=== PATIENT | female | born 1990 | race Caucasian/White ===

== ENCOUNTER 2018-04-15 21:54 | Emergency (ER) | payer BC ==
[2018-04-15] MEDS ORDERED: Famotidine 20 MG/2 ML SDV IVPUSH ONE (22:22)
[2018-04-15] MEDS ORDERED: Ondansetron 4 MG/2 ML SDV IVPUSH ONE (22:22)
[2018-04-15] MEDS ORDERED: Sodium Chloride 0.9% 10 ML Syringe FLUSH PRN (22:22)
[2018-04-15] MEDS ORDERED: metroNIDAZOLE/Normal Saline 500 MG in Premix Bag 1 BAG IV ONE (22:22)
[2018-04-15] MEDS ORDERED: cefTRIAXone 1 GM in Sodium Chloride 0.9% 100 ML IV ONE (22:22)
[2018-04-15] MEDS ORDERED: Lactated Ringers 1,000 ML IV ONE (22:22)
[2018-04-15] MEDS ORDERED: Pantoprazole 40 MG Vial IVPUSH ONE (22:22)
--- NOTE | 2018-04-15 22:37 | EDM.PDOC ---
ED HPI GENERAL MEDICAL PROBLEM - General Chief Complaint: VENEER TRIMMER Problem Stated Complaint: Vaginal pain Time Seen by Provider: 04/15/18 22:15 Source of Information: Reports: Patient, Significant Other. Denies: Old Records (No [facility] records available) History Limitations: Reports: No Limitations - History of Present Illness INITIAL COMMENTS - FREE TEXT/NARRATIVE: She was brought to the emergency room via private automobile by her significant other for evaluation of nonspecific intermittent 10/10 sharp bilateral lower quadrant abdominal pain associated with some unspecific vaginal discomfort. Patient does have a previous history of STD as below, however no known recent exposure to infection. She did complain of somewhat black stools 2 days ago and a vaginal yeast type discharge 3 days ago. In addition, some possible mild urinary frequency, dysuria, and occasional hematuria during the last couple of days with no colic type symptoms. The patient did take 400 mg of ibuprofen and 1500 mg of Tylenol one hour prior to arrival with no known history of fever. No recent history of other abdominal pain, heartburn, nausea, diarrhea, gross hematochezia, or any food intolerance, including fatty foods, etc.. The patient also denies any recent cough, wheezing, dyspnea, etc.. Her symptoms have progressed during the last 4 hours. Onset: Gradual Duration: Day(s): (As above), Getting Worse, Intermittent Location: Reports: Abdomen. Denies: Head, Face, Neck, Chest, Back, Pelvis, Upper Extremity, Left, Upper Extremity, Right, Lower Extremity, Left, Lower Extremity, Right, Radiates to Quality: Reports: Sharp Severity: Severe Improves with: Reports: None Worsens with: Reports: None Context: Denies: Sick Contact, Trauma Associated Symptoms: Denies: Confusion, Chest Pain, Cough, Diaphoresis, Fever/ Chills, Headaches, Loss of Appetite, Malaise, Nausea/Vomiting, Seizure, Shortness of Breath, Syncope, Weakness Treatments RAW HIDE TRIMMER: Reports: Acetaminophen, NSAIDS Vaginal Pain Score (Numeric/FACES): 10 (And and bilateral lower abdominal) - Related Data Allergies Allergy/AdvReac Type Severity Reaction Status Date / Time No Known Allergies Allergy Verified 04/15/18 21:55 Home Meds: Home Meds Fluconazole [Diflucan] 150 mg PO DAILY PRN #2 tablet 04/15/18 [Rx] Nitrofurantoin Monohyd/M-Cryst [Macrobid 100 mg Capsule] 100 mg PO BID #10 capsule 04/15/18 [Rx] Past Medical History Respiratory History: Reports: Asthma Genitourinary History: Reports: STD, UTI, Recurrent, Other (See Below) Other Genitourinary History: STDs as below VENEER TRIMMER History: Reports: Dysfunctional Uterine Bleeding. Denies: , Spontaneous : 0 LMP (Approximate): Other (See Below) Other VENEER TRIMMER History: Amenorrhea 15 years secondary to Depo-Provera injections despite no use during the last 6 months. Previous hypermenorrhea. STD in 2017 including gonorrhea, chlamydia, and trichomonas with treatment by her history. Psychiatric History: Reports: Anxiety, Depression Endocrine/Metabolic History: Reports: Hypothyroidism, Other (See Below) Other Endocrine/Metabolic History: Diffuse hypothyroidism after excision of benign pituitary tumor at age 13 - Past Surgical History Head Surgeries/Procedures: Reports: Other (See Below) Other Head Surgeries/Procedures: Session of pituitary tumor/adenoma at age 13. Female Surgical History: Reports: Other (See Below) Other Female Surgeries/Procedures: Excision of Bartholin cysts in 2017. Social & Family History - Tobacco Use Smoking Status *Q: Current Every Day Smoker Tobacco Use Within Last Twelve Months: Cigarettes Years of Tobacco use: 13 Packs/Tins Daily: 0.5 Packs/Tins Daily Comment: Started Smoking at age 14. Used Tobacco, but Quit: No Smoking Cessation Information Provided To Patient: Yes Second Hand Smoke Exposure: No Second Hand Smoke Education Provided: No - Alcohol Use Alcohol Use History: Yes Days Per Week of Alcohol Use: 3 Number of Drinks Per Day: 3 Number of Drinks Per Day Comment: Usually wine. No previous DWIs, problems with alcohol abuse, etc. 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 ED EXAM, GENERAL - Physical Exam Exam: See Below Exam Limited By: No Limitations General Appearance: Alert, WD/WN, No Apparent Distress, Anxious (Mild) Head: Atraumatic, Normocephalic. No: Facial Swelling, Facial Tenderness, Sinus Tenderness Neck: Normal Inspection, Supple, Non-Tender, Full Range of Motion. No: Lymphadenopathy (L), Lymphadenopathy (R), Thyromegaly Respiratory/Chest: No Respiratory Distress, Lungs Clear, Normal Breath Sounds, No Accessory Muscle Use, Chest Non-Tender. No: Pleural Rub, Retractions Cardiovascular: Normal Peripheral Pulses, Regular Rate, Rhythm, No Edema, No Gallop, No JVD, No Murmur, No Rub. No: Gallop/S3, Gallop/S4, Friction Rub Peripheral Pulses: 2+: Radial (L), Radial (R), Dorsalis Pedis (L), Dorsalis Pedis (R) GI/Abdominal: Normal Bowel Sounds, No Distention, No Abnormal Bruit, No Mass, Pelvis Stable, Tender (Nonspecific bilateral lower quadrant palpation pain). No : Guarding, Rigid, Rebound (Female) Exam: Vaginal Discharge (Mild whitish vaginal discharge consistent with vaginal moniliasis ), Other (Some bladder tenderness). No: Adnexal Tenderness, Cervical Discharge, Cervical Fluid, Cervical Lesions, Cervix Motion Tenderness, Uterine Tenderness, Vaginal Lesions, Vaginal Tears Rectal (Female) Exam: Normal Exam, Normal Rectal Tone, Heme - Stool, Other ( Minimal stool in vault). No: Tenderness (No Rajiv space tenderness) Back Exam: Normal Inspection, Full Range of Motion. No: CVA Tenderness (L), CVA Tenderness (R), Muscle Spasm Extremities: Normal Inspection, Normal Range of Motion, Non-Tender, No Pedal Edema, Normal Capillary Refill. No: Ashley's Sign Neurological: Alert, Oriented, CN II-XII Intact, Normal Cognition, Normal Gait, No Motor/Sensory Deficits Psychiatric: Anxious (Mild). No: Depressed Mood Skin Exam: Warm, Dry, Intact, Normal Color, No Rash. No: Diaphoretic, Wound/ Incision Lymphatic: No Adenopathy Course - Vital Signs Last Recorded V/S: Last Vital Signs Temp 36.7 C 04/15/18 22:00 Pulse 89 04/15/18 22:35 Resp 17 04/15/18 22:35 BP 131/85 04/15/18 22:35 Pulse Ox 99 04/15/18 22:35 Vital Signs - 24 hr 04/15/18 04/15/18 04/15/18 22:00 22:20 22:35 Temperature [ 36.7 C Temporal] Pulse, 92 89 Peripheral [ Pulse Oximetry] Respiratory 20 18 17 Rate Blood Pressure 137/84 127/89 131/85 [Right Upper Arm] O2 Sat by Pulse 99 99 99 Oximetry - Orders/Labs/Meds Orders: Active Orders 24 hr Category Date Time Status Peripheral IV Care [RC] . DIRECTED Care 04/15/18 22:22 Active Nothing Per Oral Diet [DIET] Diet 04/15/18 Breakfast Active Abdomen Series w Chest 1V [CR] Stat Exams 04/15/18 22:22 Taken CHLAMYDIA AND GONORRHEA BY TMA Routine Lab 04/15/18 23:25 Received CULTURE URINE [RM] Stat Lab 04/15/18 21:25 Received GENITAL CULTURE [MREF] Stat Lab 04/15/18 23:25 Received Sodium Chloride 0.9% [Saline Flush] Med 04/15/18 22:22 Active 10 ml FLUSH ASDIRECTED PRN Obtain Past Medical Record [OM.PC] Urgent Oth 04/15/18 22:22 Active Peripheral IV Insertion Adult [OM.PC] Stat Oth 04/15/18 22:22 Ordered Resuscitation Status Stat Resus Stat 04/15/18 22:22 Ordered Medication Orders Sodium Chloride (Saline Flush) 10 ml FLUSH ASDIRECTED PRN PRN Reason: Keep Vein Open Last Admin: 04/15/18 22:59 Dose: 10 ml Labs: Laboratory Tests 04/15/18 04/15/18 04/15/18 Range/Units 21:25 22:45 22:45 WBC 12.7 H (4.0-10.2) K/uL RBC 4.15 (3.77-5.09) M/uL Hgb 13.1 (11.7-15.5) g/dL Hct 39.4 (34.0-46.0) % MCV 94.9 (84.0-98.0) fL MCH 31.6 (28.2-33.3) pg MCHC 33.2 (31.7-36.0) g/dL RDW 12.8 (11.2-14.1) % Plt Count 225 (150-350) K/uL Neut % (Auto) 61.1 (45.0-80.0) % Lymph % (Auto) 24.3 (10.0-50.0) % Hodgeman % (Auto) 11.3 (2.0-14.0) % Eos % (Auto) 3.1 (0.0-5.0) % Baso % (Auto) 0.2 (0.0-2.0) % Neut # (Auto) 7.78 H (1.40-7.00) K/uL Lymph # (Auto) 3.09 (0.50-3.50) K/uL Hodgeman # (Auto) 1.44 H (0.00-1.00) K/uL Eos # (Auto) 0.39 (0.00-0.50) K/uL Baso # (Auto) 0.03 (0.00-0.20) K/uL PT (9.5-12.0) SEC INR APTT (21.0-31.3) SEC Sodium (136-145) mmol/L Potassium (3.5-5.1) mmol/L Chloride (98-107) mmol/L Carbon Dioxide (21.0-32.0) mmol/L BUN (7-18) mg/dL Creatinine (0.51-1.17) mg/dL Est Cr Clr Drug Dosing Estimated GFR (MDRD) mL/min Glucose (74-106) mg/dL Lactic Acid (0.4-2.0) mmol/L Uric Acid (2.6-7.2) mg/dL Calcium (8.5-10.1) mg/dL Magnesium (1.8-2.4) mg/dL Total Bilirubin (0.2-1.0) mg/dL AST (15-37) U/L ALT (12-78) U/L Alkaline Phosphatase (46-116) IU/L Total Protein (6.4-8.2) g/dL Albumin (3.4-5.0) g/dL Amylase 68 (25-115) U/L Lipase (73-393) U/L TSH, Ultra Sensitive (0.358-3.740) mIU/mL HCG, Qual (NEGATIVE) Specimen Type Urinvoid Urine Color Yellow Urine Appearance Cloudy Urine pH 6.0 (5.0-9.0) Ur Specific Heavener >= 1.030 (1.005-1.030) Urine Protein >=300 H (NEGATIVE) mg/dL Urine Glucose (UA) Negative (NEGATIVE) mg/dL Urine Ketones 15 H (NEGATIVE) mg/dL Urine Occult Blood Large H (NEGATIVE) Urine Nitrite Negative (NEGATIVE) Urine Bilirubin Negative (NEGATIVE) Urine Urobilinogen 0.2 (0.2-1.0) E.U./dL Ur Leukocyte Esterase Small H (NEGATIVE) Urine RBC 30-40 H /HPF Urine WBC >100 H /HPF Ur Epithelial Cells Few /LPF Urine Bacteria Many H (NONE TO FEW) /HPF 04/15/18 04/15/18 04/15/18 Range/Units 22:45 22:45 22:45 WBC (4.0-10.2) K/uL RBC (3.77-5.09) M/uL Hgb (11.7-15.5) g/dL Hct (34.0-46.0) % MCV (84.0-98.0) fL MCH (28.2-33.3) pg MCHC (31.7-36.0) g/dL RDW (11.2-14.1) % Plt Count (150-350) K/uL Neut % (Auto) (45.0-80.0) % Lymph % (Auto) (10.0-50.0) % Hodgeman % (Auto) (2.0-14.0) % Eos % (Auto) (0.0-5.0) % Baso % (Auto) (0.0-2.0) % Neut # (Auto) (1.40-7.00) K/uL Lymph # (Auto) (0.50-3.50) K/uL Hodgeman # (Auto) (0.00-1.00) K/uL Eos # (Auto) (0.00-0.50) K/uL Baso # (Auto) (0.00-0.20) K/uL PT 10.0 (9.5-12.0) SEC INR 0.9 APTT 29.3 (21.0-31.3) SEC Sodium 138 (136-145) mmol/L Potassium 3.4 L (3.5-5.1) mmol/L Chloride 102 (98-107) mmol/L Carbon Dioxide 27.7 (21.0-32.0) mmol/L BUN 9 (7-18) mg/dL Creatinine 0.63 (0.51-1.17) mg/dL Est Cr Clr Drug Dosing TNP Estimated GFR (MDRD) > 60 mL/min Glucose 145 H (74-106) mg/dL Lactic Acid 1.5 (0.4-2.0) mmol/L Uric Acid 3.5 (2.6-7.2) mg/dL Calcium 8.7 (8.5-10.1) mg/dL Magnesium 2.0 (1.8-2.4) mg/dL Total Bilirubin 0.2 (0.2-1.0) mg/dL AST 21 (15-37) U/L ALT 32 (12-78) U/L Alkaline Phosphatase 71 (46-116) IU/L Total Protein 7.4 (6.4-8.2) g/dL Albumin 3.8 (3.4-5.0) g/dL Amylase (25-115) U/L Lipase 199 (73-393) U/L TSH, Ultra Sensitive (0.358-3.740) mIU/mL HCG, Qual (NEGATIVE) Specimen Type Urine Color Urine Appearance Urine pH (5.0-9.0) Ur Specific Heavener (1.005-1.030) Urine Protein (NEGATIVE) mg/dL Urine Glucose (UA) (NEGATIVE) mg/dL Urine Ketones (NEGATIVE) mg/dL Urine Occult Blood (NEGATIVE) Urine Nitrite (NEGATIVE) Urine Bilirubin (NEGATIVE) Urine Urobilinogen (0.2-1.0) E.U./dL Ur Leukocyte Esterase (NEGATIVE) Urine RBC /HPF Urine WBC /HPF Ur Epithelial Cells /LPF Urine Bacteria (NONE TO FEW) /HPF 04/15/18 04/15/18 Range/Units 22:45 22:45 WBC (4.0-10.2) K/uL RBC (3.77-5.09) M/uL Hgb (11.7-15.5) g/dL Hct (34.0-46.0) % MCV (84.0-98.0) fL MCH (28.2-33.3) pg MCHC (31.7-36.0) g/dL RDW (11.2-14.1) % Plt Count (150-350) K/uL Neut % (Auto) (45.0-80.0) % Lymph % (Auto) (10.0-50.0) % Hodgeman % (Auto) (2.0-14.0) % Eos % (Auto) (0.0-5.0) % Baso % (Auto) (0.0-2.0) % Neut # (Auto) (1.40-7.00) K/uL Lymph # (Auto) (0.50-3.50) K/uL Hodgeman # (Auto) (0.00-1.00) K/uL Eos # (Auto) (0.00-0.50) K/uL Baso # (Auto) (0.00-0.20) K/uL PT (9.5-12.0) SEC INR APTT (21.0-31.3) SEC Sodium (136-145) mmol/L Potassium (3.5-5.1) mmol/L Chloride (98-107) mmol/L Carbon Dioxide (21.0-32.0) mmol/L BUN (7-18) mg/dL Creatinine (0.51-1.17) mg/dL Est Cr Clr Drug Dosing Estimated GFR (MDRD) mL/min Glucose (74-106) mg/dL Lactic Acid (0.4-2.0) mmol/L Uric Acid (2.6-7.2) mg/dL Calcium (8.5-10.1) mg/dL Magnesium (1.8-2.4) mg/dL Total Bilirubin (0.2-1.0) mg/dL AST (15-37) U/L ALT (12-78) U/L Alkaline Phosphatase (46-116) IU/L Total Protein (6.4-8.2) g/dL Albumin (3.4-5.0) g/dL Amylase (25-115) U/L Lipase (73-393) U/L TSH, Ultra Sensitive 1.681 (0.358-3.740) mIU/mL HCG, Qual Negative (NEGATIVE) Specimen Type Urine Color Urine Appearance Urine pH (5.0-9.0) Ur Specific Heavener (1.005-1.030) Urine Protein (NEGATIVE) mg/dL Urine Glucose (UA) (NEGATIVE) mg/dL Urine Ketones (NEGATIVE) mg/dL Urine Occult Blood (NEGATIVE) Urine Nitrite (NEGATIVE) Urine Bilirubin (NEGATIVE) Urine Urobilinogen (0.2-1.0) E.U./dL Ur Leukocyte Esterase (NEGATIVE) Urine RBC /HPF Urine WBC /HPF Ur Epithelial Cells /LPF Urine Bacteria (NONE TO FEW) /HPF Microbiology 04/15/18 23:25 Stool Occult Blood (SAMINA) - Final Stool / Feces NEGATIVE OCCULT BLOOD 04/15/18 23:25 Wet Prep - Final Vagina Overall negative wet prep Meds: Medications Generic Name Dose Route Start Last Admin Trade Name Freq PRN Reason Stop Dose Admin Sodium Chloride 10 ml 04/15/18 22:22 04/15/18 22:59 Saline Flush FLUSH 10 ml ASDIRECTED PRN Administration Keep Vein Open Discontinued Medications Generic Name Dose Route Start Last Admin Trade Name Freq PRN Reason Stop Dose Admin Famotidine 40 mg 04/15/18 22:22 04/15/18 22:59 Pepcid IVPUSH 04/15/18 22:23 40 mg ONETIME ONE Administration Nitrofurantoin Macrocrystals 100 mg 04/15/18 23:56 04/16/18 00:25 Macrobid PO 04/15/18 23:57 100 mg ONETIME ONE Administration Pantoprazole Sodium 40 mg 04/15/18 22:22 04/15/18 22:59 Protonix Iv IVPUSH 04/15/18 22:23 40 mg ONETIME ONE Administration - Radiology Interpretation Free Text/Narrative:: Acute abdominal x-rays shows some nonspecific cystic type lesions in the femoral heads bilaterally with mild stool but no fluid levels, free air, ileus, or obstruction. Mild pulmonary obstructive disease with no cardiomegaly, CHF, pulmonary infiltrates, pneumothorax, etc. Departure - Departure Time of Disposition: 00:30 Disposition: Home, Self-Care 01 Condition: Good Clinical Impression: UTI (urinary tract infection), Vaginal moniliasis, Abdominal pain, Tobacco abuse counseling, Amenorrhea, Hypokalemia - Discharge Information *PRESCRIPTION DRUG MONITORING PROGRAM REVIEWED*: Not Applicable *COPY OF PRESCRIPTION DRUG MONITORING REPORT IN PATIENT JUDITH: Not Applicable Prescriptions: Fluconazole [Diflucan] 150 mg PO DAILY PRN #2 tablet PRN Reason: Vaginitis Nitrofurantoin Monohyd/M-Cryst [Macrobid 100 mg Capsule] 100 mg PO BID #10 capsule Instructions: Vaginal Yeast Infection, Adult, Urinary Tract Infection, Adult, [id number], Steps to Quit Smoking Referrals: Nik Alves PA [Primary Care Provider] - Forms: ED Department Discharge, ED Return to Work/School Form Additional Instructions: 1. Followup with your regular provider in 10-14 days as directed for reevaluation, repeat urine tests as below and repeat CBC. Bring these discharge instructions with you to that visit. 2. Urine tests should be repeated at follow up visit with possible repeat urine culture,etc. at that time. Today's urine culture is pending with results in about 2-3 days. We will call you, if we need to change your therapy. 3. Encourage oral fluids, including daily cranberry use, etc.as directed. 4. Tylenol 650 mg by mouth every 4 hours and/or OTC ibuprofen 2-3 tabs by mouth every 6 hours with food as directed./needed. You may stagger these medications for 48-72 hours only, which essentially means that you are receiving a pain medication about every 2 hours. 5. NEVER EXCEED THE RECOMMENDED DOSE OF MEDICINES, INCLUDING OTC MEDICINES, ETC. 6. Work excuse- See Form 7. Stop all tobacco use YNES as directed/per provided information and consider contacting Quit LIne, etc.. 8. Please remember that we are ALWAYS here for you and want to answer any questions you may have. Feel free to call the hospital any time and we call you back YNES. 9. Immediately after this visit verify that your cellular telephone's voicemail has been activated and is empty. Also verify that your home telephone 's answering machine is operating properly and has space to receive messages. Note that it is sometimes necessary for us to be able to contact you at a later date to discuss your medical care. - Problem List & Annotations (1) Abdominal pain SNOMED Code(s): 54203049 Code(s): R10.9 - UNSPECIFIED ABDOMINAL PAIN Status: Acute Priority: High Current Visit: Yes Onset Date: ~04/15/18 Annotation/Comment:: Nonspecific bilateral lower quadrant abdominal pain consistent with cystitis, however note history of STD in the past. Wet prep appears overall normal. Additional specimens for vaginal culture and sensitivity, GC, and chlamydia were obtained. Minimal vaginal moniliasis currently and likely not an etiology of her current discomfort. Various therapeutic options were discussed with the patient not wishing to have a pelvic ultrasound on an outpatient basis at this time. Work excuse provided. Close follow-up by her regular provider as per discharge instructions. Secondary to history of possible melena high-dose IV Pepcid and IV Protonix were given. Note negative Hemoccult as above. Qualifiers: Abdominal location: lower abdomen, unspecified Qualified Code(s): R10.30 - Lower abdominal pain, unspecified (2) UTI (urinary tract infection) SNOMED Code(s): 07280301 Code(s): N39.0 - URINARY TRACT INFECTION, SITE NOT SPECIFIED Status: Acute Priority: High Current Visit: Yes Onset Date: ~04/15/18 Annotation/ Comment:: Macrobid therapy initiated in the emergency room. Emergency room prescription for Pyridium provided. Mild WBC elevation with CBC to be repeated at follow up. Qualifiers: Urinary tract infection type: acute cystitis Hematuria presence: with hematuria Qualified Code(s): N30.01 - Acute cystitis with hematuria (3) Tobacco abuse counseling SNOMED Code(s): 713419020, 970390171, 297563937 Code(s): Z71.6 - TOBACCO ABUSE COUNSELING Status: Chronic Priority: Medium Current Visit: Yes Annotation/Comment:: Tobacco cessation strongly encouraged with information provided at discharge. (4) Vaginal moniliasis SNOMED Code(s): 23260941 Code(s): B37.3 - CANDIDIASIS OF VULVA AND VAGINA Status: Acute Priority: Medium Current Visit: Yes Onset Date: ~04/15/18 Annotation/Comment:: Likely nonsymptomatic at this time with prescription for Diflucan given secondary to antibiotic therapy. (5) Amenorrhea SNOMED Code(s): 78751103 Code(s): N91.2 - AMENORRHEA, UNSPECIFIED Status: Chronic Priority: Medium Current Visit: Yes Annotation/Comment:: Note chronic amenorrhea after discontinuation of Depo-Provera as above. TSH normal today. Continue to observe closely with further workup depending on her clinical course. (6) Hypokalemia SNOMED Code(s): 64532624 Code(s): E87.6 - HYPOKALEMIA Status: Acute Priority: Medium Current Visit: Yes Onset Date: 04/15/18 Annotation/Comment:: Borderline Hypokalemia. High potassium diet. Observe for now. - Problem List Review Problem List Initiated/Reviewed/Updated: Yes - My Orders Last 24 Hours: My Active Orders 04/15/18 21:25 CULTURE URINE [RM] Stat 04/15/18 22:22 Peripheral IV Care [RC] . DIRECTED Abdomen Series w Chest 1V [CR] Stat Sodium Chloride 0.9% [Saline Flush] 10 ml FLUSH ASDIRECTED PRN Obtain Past Medical Record [OM.PC] Urgent Peripheral IV Insertion Adult [OM.PC] Stat Resuscitation Status Stat 04/15/18 23:25 CHLAMYDIA AND GONORRHEA BY TMA Routine GENITAL CULTURE [MREF] Stat 04/15/18 Breakfast Nothing Per Oral Diet [DIET] - Assessment/Plan Last 24 Hours: My Active Orders 04/15/18 21:25 CULTURE URINE [RM] Stat 04/15/18 22:22 Peripheral IV Care [RC] . DIRECTED Abdomen Series w Chest 1V [CR] Stat Sodium Chloride 0.9% [Saline Flush] 10 ml FLUSH ASDIRECTED PRN Obtain Past Medical Record [OM.PC] Urgent Peripheral IV Insertion Adult [OM.PC] Stat Resuscitation Status Stat 04/15/18 23:25 CHLAMYDIA AND GONORRHEA BY TMA Routine GENITAL CULTURE [MREF] Stat 04/15/18 Breakfast Nothing Per Oral Diet [DIET] Assessment:: As above Plan: As above. Extensive precautions were given to the patient and her significant other, who are in agreement with the treatment plan. See Patient Instructions for further treatment and plan.
[2018-04-15 23:21] LABS: CHLORIDE,CL 102 mmol/L (98-107); SODIUM,NA 138 mmol/L (136-145)
[2018-04-15] MEDS ORDERED: Nitrofurantoin Monohydrate/Macrocrystalline 100 MG Cap PO ONE (23:56)
== END 2018-04-16 00:30 | disposition home or self-care (01) ==
LOC: LL.ED 21:54
DX: B37.3 Candidiasis of vulva and vagina (principal); N39.0 Urinary tract infection, site not specified; E87.6 Hypokalemia; N91.2 Amenorrhea, unspecified; Z71.6 Tobacco abuse counseling; F17.210 Nicotine dependence, cigarettes, uncomplicated
CPT/HCPCS: 36415; 74022; 80053; 81001; 82150; 82272; 83605; 83690; 83735; 84443; 84550; 84703; 85025; 85610; 85730; 87070; 87086; 87088; 87186; 87205; 87210; 87491; 87591; 96374; 96375; 99284; A9270-GY; C9113; J3490